=== PATIENT | male | born 1980 | race Two or more races ===

== ENCOUNTER 2020-04-01 10:38 | Emergency (ER) | payer OTHER ==
[2020-04-01 12:05] LABS: ABSOLUTE MONOCYTES (AUTO) 0.4 10^3/uL (0.1-1.4); ABSOLUTE NEUT (AUTO) 2.7 10^3/uL (1.7-8.2); BASOPHILS % (AUTO) 0.7 % (0-2); EOSINOPHILS % (AUTO) 0.1 % (0-6); HEMATOCRIT 42.1 % (37.9-51.0); HEMOGLOBIN 14.5 g/dL (13.5-17.0); MEAN CORPUSCULAR HGB CONC 34.4 g/dL (32.0-36.0); MEAN CORPUSCULAR VOLUME 84 fl (80-97); MONOCYTES % (AUTO) 10.4 % (3-13); PLATELET COUNT 206 10^3/uL (150-450); RED BLOOD COUNT 4.98 10^6/uL (4.35-5.55); SEGMENTED NEUTROPHILS % (AUTO) 63.8 % (42-78); TOTAL CELLS COUNTED % (AUTO) 100 %; WHITE BLOOD COUNT 4.2 10^3/uL (4.0-10.5)
[2020-04-01 12:08] LABS: ALBUMIN 4.9 g/dL (3.5-5.0); ALKALINE PHOSPHATASE 47 U/L (38-126); ANION GAP 10 (5-19); ASPARTATE AMINO TRANSFERASE 26 U/L (17-59); BILIRUBIN,DIRECT 0.2 mg/dL (0.0-0.4); BILIRUBIN,TOTAL 0.6 mg/dL (0.2-1.3); BLOOD UREA NITROGEN 11 mg/dL (7-20); CALCIUM 10.1 mg/dL (8.4-10.2); CARBON DIOXIDE 27 mmol/L (22-30); CHLORIDE 102 mmol/L (98-107); CREATINE KINASE 208 U/L (55-170); GLUCOSE 98 mg/dL (75-110); POTASSIUM 4.2 mmol/L (3.6-5.0); TOTAL PROTEIN 7.9 g/dL (6.3-8.2)
--- NOTE | 2020-04-01 12:12 | ER Document Report ---
ED Cardiac - General Chief Complaint: Palpitations Stated Complaint: FAST HEARTRATE/DIZZYNESS Time Seen by Provider: 04/01/20 10:46 Mode of Arrival: Ambulatory Information source: Patient Notes: This 39-year-old man presents to the emergency department with a complaint of episodic tachycardia with occasional tingling in the extremities and dizziness. He has been having symptoms for over 4 months intermittently. States that he had seen blending plant operator in [place] for ultrasound and evaluation. Holter monitor was not placed at that time. He has had some investigation no diagnosis has been made. He describes a episodic chest discomfort which he states is not a predominant portion of his symptoms. He denies known medical diagnoses and does not take any medications at this time. - Related Data Allergies/Adverse Reactions: No Known Allergies Allergy (Verified 04/01/20 11:03) Past Medical History - Social History Smoking Status: Never Smoker Chew tobacco use (# tins/day): No Frequency of alcohol use: Social Drug Abuse: None Family History: Reviewed & Not Pertinent Patient has homicidal ideation: No Past Surgical History: Reports: Hx Appendectomy Review of Systems - Review of Systems Notes: Constitutional: Negative for fever. HENT: Negative for sore throat. Eyes: Negative for visual changes. Cardiovascular: See HPI Respiratory: Negative for shortness of breath. Gastrointestinal: Negative for abdominal pain, vomiting or diarrhea. Genitourinary: Negative for dysuria. Musculoskeletal: Negative for back pain. Skin: Negative for rash. Neurological: Negative for headaches, weakness or numbness. 10 point ROS negative except as marked above and in HPI. Physical Exam - Vital signs Vitals: Pulse Ox 99 04/01/20 11:00 - Notes Notes: PHYSICAL EXAMINATION: Physical Exam: General: Well-nourished well-developed 39-year-old in no acute distress HEENT: NC/AT, pupils equal round and reactive to light, MM moist,nares clear, oropharynx clear, airway patent Neck: supple, no adenopathy, no masses. Good range of motion Lungs: clear, no wheezing, no rales no rhonchi CVS: Regular rate and rhythm no murmur gallop or rub Abdomen: Soft, active, nontender, no masses, no hepatosplenomegaly Ext: No edema, clubbing or cyanosis. Neuro: Alert and responsive, moving all 4 extremities on command, cranial nerves intact, no focal findings Skin: Intact no open lesions, no rash PSYCH: Normal mood, normal affect. Course - Re-evaluation Re-evalutation: 04/01/20 16:10 Discussed the patient with the blending plant operator Dr. Grimes, he has suggested that the patient make the appointment with him and have Holter monitor placed. Given his frequency of episodes low-dose beta-ki could be used. He is given propranolol half a tablet twice daily. He is encouraged to call and schedule with a blending plant operator today. - Vital Signs Vital signs: Temp Pulse Resp BP Pulse Ox 18 122/72 99 04/01/20 15:01 04/01/20 15:01 04/01/20 15:01 - Laboratory Result Diagrams: 04/01/20 11:15 04/01/20 11:15 Laboratory results interpreted by me: 04/01/20 11:15 Creatine Kinase 208 H I have reviewed laboratory data and used this information for the treatment decisions regarding the patient. - Diagnostic Test Radiology reviewed: Image reviewed, Reports reviewed Radiology results interpreted by me: 04/01/20 16:08 Chest X-Ray 04/01/20 00:00 IMPRESSION: NO ACUTE RADIOGRAPHIC FINDING IN THE CHEST. - EKG Interpretation by Me Rate: Normal - EKG interpreted by Dr. Contreras: Normal sinus rhythm, rate 95, OR interval 132 ms QT interval 348ms, normal axis, no acute ST or T wave abnormalit ies, no ischemic findings, there is no prior EKG to compare. Interpretation: Normal EKG Discharge - Discharge Clinical Impression: Tachycardia Condition: Good Disposition: HOME, SELF-CARE Instructions: Beta Blockers ([facility]) Additional Instructions: You were seen in the emergency department today with history of rapid heartbeat episodes. The EKG and labs were unremarkable for a cause of your symptoms. Your chest x-ray is also noted to be normal. You have been given the name of a blending plant operator to call in order to get a Holter monitor placed. You have also been given a prescription for propranolol 10 mg tablets, you to take 1 tablet twice daily. Please arrange the appointment with the blending plant operator by calling the number today. Dr. Grimes, cardiology, If your symptoms are worsening or if you have other concerns you may return to the emergency department for further evaluation and treatment. HOME CARE INSTRUCTIONS & INFORMATION: Thank you for choosing us for your medical needs. We hope you're satisfied with the care you received. After you leave, you must properly care for your problem and, at the same time, observe its progress. Any condition can change. Some illnesses can change rapidly over hours or days. If your condition worsens, return to the Emergency Department or see your physician promptly. ABOUT YOUR X-RAYS AND EKG'S: If you had an EKG or X-rays taken, they have been read by the Emergency Physician. The X-rays and EKG's will also be read by a Radiologist or It Assistant within 24 hours. If discrepancies are noted, you will be notified by telephone. Please be certain the ED has a correct telephone number & address where you can be reached. Also, realize that some fractures or abnormalities do not show up on initial X-rays. If your symptoms continue, see your physician. ABOUT YOUR LABORATORY TEST: If you had laboratory tests, the results have been reviewed by the Emergency Physician. Some test results (for example cultures) may not be available for several days. You will be contacted if any test result shows you need additional treatment. Please be certain the ED has a correct telephone number and address where you can be reached. ABOUT YOUR MEDICATIONS: You will receive instructions on how to take your medicine on the prescription label you receive. Additional information may be provided by the Pharmacy. If you have questions afterwards, call the ED for clarification or further instructions. Some prescribed medications may cause drowsiness. Do not perform tasks such as driving a car or operating machinery without consulting your Pharmacist. If you feel you need a refill of pain medication, your condition will need re-evaluation. Please do not call for a refill of any medication. ABOUT YOUR SIGNATURE: Signature of this document acknowledges to followin. Understanding that you received emergency treatment and that you may be released before al medical problems are known or treated. Please be certain the ED has a correct phone number & address where you can be reached. 2. Acknowledgement that you will arrange for follow-up care as recommended. 3. Authorization for the Emergency Physician to provide information to your follow-up Physician in order to maximize your care. AT ANY TIME, IF YOUR SYMPTOMS CHANGE SIGNIFICANTLY OR WORSEN OR YOU DEVELOP NEW SYMPTOMS, RETURN TO THE EMERGENCY DEPARTMENT IMMEDIATELY FOR RE-EVALUATION. OUR GOAL IS TO PROVIDE EXCELLENT MEDICAL CARE! WE HOPE THAT WE HAVE MET YOUR EXPECTATIONS DURING YOUR EMERGENCY DEPARTMENT VISIT AND THAT YOU FEEL YOU HAVE RECEIVED EXCELLENT CARE! Prescriptions: Propranolol HCl [Inderal 10 mg Tablet] 10 mg PO Q12 #30 tab
[2020-04-01 12:20] LABS: CREATINE KINASE MB 1.03 ng/mL (<4.55)
[2020-04-01 12:26] LABS: TROPONIN I < 0.012 ng/mL
--- NOTE | 2020-04-01 12:44 | RADIOLOGY REPORT (SQ) ---
EXAM DESCRIPTION: CHEST 2 VIEWS IMAGES COMPLETED DATE/TIME: 04/01/2020 12:32 pm REASON FOR STUDY: chest pain COMPARISON: None. EXAM PARAMETERS: NUMBER OF VIEWS: two views TECHNIQUE: Digital Frontal and Lateral radiographic views of the chest acquired. RADIATION DOSE: NA LIMITATIONS: none FINDINGS: LUNGS AND PLEURA: No opacities, masses or pneumothorax. No pleural effusion. MEDIASTINUM AND HILAR STRUCTURES: No masses or contour abnormalities. HEART AND VASCULAR STRUCTURES: Heart normal size. No evidence for failure. BONES: No acute findings. HARDWARE: None in the chest. OTHER: No other significant finding. IMPRESSION: NO ACUTE RADIOGRAPHIC FINDING IN THE CHEST. TECHNICAL DOCUMENTATION: JOB ID: [id number] 2010 [employer]- All Rights Reserved Reading location - IP/workstation name: [email or web address]
[2020-04-01 16:36] VITALS: BP 122/72
--- NOTE | 2020-04-01 18:02 | EKG REPORT ---
SEVERITY:- NORMAL ECG - SINUS RHYTHM : Confirmed by: Nish Spencer MD 01-Apr-2020 18:01:19
== END 2020-04-01 16:33 | disposition home or self-care (01) ==
LOC: ER 10:38
DX: R00.0 Tachycardia, unspecified (principal); R20.2 Paresthesia of skin; R42 Dizziness and giddiness; R07.9 Chest pain, unspecified
CPT/HCPCS: 36415; 71046; 80053; 82550; 82553; 84443; 84484; 85025; 93005; 93010; 99285

== ENCOUNTER → 2020-04-08 | Outpatient (CLI) | payer OTHER ==
[2020-04-08 09:26] LABS: ALBUMIN 4.8 g/dL (3.5-5.0); ALKALINE PHOSPHATASE 45 U/L (38-126); ASPARTATE AMINO TRANSFERASE 24 U/L (17-59); BILIRUBIN,DIRECT 0.1 mg/dL (0.0-0.4); BILIRUBIN,TOTAL 0.9 mg/dL (0.2-1.3); CHOLESTEROL 176.76 mg/dL (0-200); TOTAL PROTEIN 7.6 g/dL (6.3-8.2); TRIGLYCERIDES 63 mg/dL (<150)
[2020-04-08 09:38] LABS: DIRECT LDL 85 mg/dL (<100)
[2020-04-08 10:12] LABS: FREE T3 4.4 pg/mL (2.77-5.27); FREE T4 (FREE THYROXINE) 1.14 ng/dL (0.78-2.19)
[2020-04-08 10:25] LABS: THYROID STIMULATING HORMONE 2.01 uIU/mL (0.47-4.68)
== END ==
LOC: OD 08:06
PROVIDERS: ATTEND Specialist
DX: R07.9 Chest pain, unspecified (principal); E78.5 Hyperlipidemia, unspecified; Z13.29 Encounter for screening for other suspected endocrine disorder; Z79.899 Other long term (current) drug therapy
CPT/HCPCS: 36415; 80061; 80076; 83036; 84439; 84443; 84481

== ENCOUNTER 2020-04-09 11:42 | Emergency (ER) | payer OTHER ==
--- NOTE | 2020-04-09 12:27 | ER Document Report ---
ED Medical Screen (RME) - General Chief Complaint: Palpitations Stated Complaint: HEART RATE ISSUES Time Seen by Provider: 04/09/20 12:23 Primary Care Provider: NELSON MEHTA MD [Primary Care Provider] - Follow up as needed Mode of Arrival: Wheelchair Information source: Patient Notes: 39-year-old male presents to ED for complaint of chest palpitations. He states he has had the palpitations on and off for years. He states at times it makes him feel like he was going to pass out. He states it was very fast pulse today so he came back into the emergency room. He states his pulse gets up to 140. He is alert oriented respirations regular nonlabored speaking in full sentences I have ordered a chest pain protocol at this time. I have greeted and performed a rapid initial assessment of this patient. A comprehensive ED assessment and evaluation of the patient, analysis of test results and completion of medical decision making process will be conducted by an additional ED providers. - Related Data Allergies/Adverse Reactions: No Known Allergies Allergy (Verified 04/01/20 11:03) Past Medical History Past Surgical History: Reports: Hx Appendectomy Physical Exam - Vital signs Vitals: Temp Pulse Resp BP Pulse Ox 98.1 F 100 18 152/90 H 99 04/09/20 11:45 04/09/20 11:45 04/09/20 11:45 04/09/20 11:45 04/09/20 11:45 Course - Vital Signs Vital signs: Temp Pulse Resp BP Pulse Ox 98.1 F 100 18 152/90 H 99 04/09/20 11:45 04/09/20 11:45 04/09/20 11:45 04/09/20 11:45 04/09/20 11:45 Doctor's Discharge - Discharge Referrals: NELSON MEHTA MD [Primary Care Provider] - Follow up as needed
--- NOTE | 2020-04-09 13:22 | RADIOLOGY REPORT (SQ) ---
EXAM DESCRIPTION: CHEST 2 VIEWS IMAGES COMPLETED DATE/TIME: 04/09/2020 12:00 pm REASON FOR STUDY: palpitations COMPARISON: None. EXAM PARAMETERS: NUMBER OF VIEWS: two views TECHNIQUE: Digital Frontal and Lateral radiographic views of the chest acquired. RADIATION DOSE: NA LIMITATIONS: none FINDINGS: LUNGS AND PLEURA: No opacities, masses or pneumothorax. No pleural effusion. MEDIASTINUM AND HILAR STRUCTURES: No masses or contour abnormalities. HEART AND VASCULAR STRUCTURES: Heart normal size. No evidence for failure. BONES: No acute findings. HARDWARE: Battery pack at the left chest wall without lead wires. OTHER: No other significant finding. IMPRESSION: NO ACUTE RADIOGRAPHIC FINDING IN THE CHEST. TECHNICAL DOCUMENTATION: JOB ID: [id number] 2010 [employer]- All Rights Reserved Reading location - IP/workstation name: [email or web address]
[2020-04-09 14:01] LABS: ABSOLUTE LYMPHOCYTES (AUTO) 1.2 10^3/uL (0.5-4.7); ABSOLUTE MONOCYTES (AUTO) 0.4 10^3/uL (0.1-1.4); ABSOLUTE NEUT (AUTO) 2.5 10^3/uL (1.7-8.2); BASOPHILS % (AUTO) 0.5 % (0-2); EOSINOPHILS % (AUTO) 0.3 % (0-6); HEMOGLOBIN 14.7 g/dL (13.5-17.0); LYMPHOCYTES % (AUTO) 28.6 % (13-45); MEAN CORPUSCULAR HEMOGLOBIN 29.6 pg (27.0-33.4); MEAN CORPUSCULAR HGB CONC 34.9 g/dL (32.0-36.0); MEAN CORPUSCULAR VOLUME 85 fl (80-97); MONOCYTES % (AUTO) 10.4 % (3-13); PLATELET COUNT 214 10^3/uL (150-450); RED BLOOD COUNT 4.96 10^6/uL (4.35-5.55); SEGMENTED NEUTROPHILS % (AUTO) 60.2 % (42-78); TOTAL CELLS COUNTED % (AUTO) 100 %; WHITE BLOOD COUNT 4.2 10^3/uL (4.0-10.5)
[2020-04-09 14:17] LABS: ALBUMIN 4.9 g/dL (3.5-5.0); ALKALINE PHOSPHATASE 45 U/L (38-126); ANION GAP 9 (5-19); ASPARTATE AMINO TRANSFERASE 24 U/L (17-59); BILIRUBIN,TOTAL 0.7 mg/dL (0.2-1.3); BLOOD UREA NITROGEN 10 mg/dL (7-20); CARBON DIOXIDE 29 mmol/L (22-30); CHLORIDE 102 mmol/L (98-107); CREATINE KINASE 106 U/L (55-170); GLUCOSE 84 mg/dL (75-110); POTASSIUM 4.5 mmol/L (3.6-5.0); TOTAL PROTEIN 8.2 g/dL (6.3-8.2)
--- NOTE | 2020-04-09 14:32 | ER Document Report ---
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 Guru Contreras for evaluation of palpitations with a negative work-up including normal labs, EKG and chest x- ray. He is having ongoing palpitations. He has been seen by Dr. Mehta from cardiology and has had an event monitor placed. We still have results from this. He denies chest pain. He denies syncope or presyncope. He denies caffeine intake. He has been taking some as needed propranolol with mixed results. - Related Data Allergies/Adverse Reactions: No Known Allergies Allergy (Verified 04/01/20 11:03) Past Medical History - General Information source: Patient - Social History Smoking Status: Never Smoker Frequency of alcohol use: None Drug Abuse: None Family History: Reviewed & Not Pertinent - Past Medical History Cardiac Medical History: Reports: None Pulmonary Medical History: Denies: Hx Asthma Past Surgical History: Reports: Hx Appendectomy Review of Systems - Review of Systems Notes: Constitutional: Negative for fever. HENT: Negative for sore throat. Eyes: Negative for visual changes. Cardiovascular: As per HPI. Respiratory: Negative for shortness of breath. Gastrointestinal: Negative for abdominal pain, vomiting or diarrhea. Genitourinary: Negative for dysuria. Musculoskeletal: Negative for back pain. Skin: Negative for rash. Neurological: Negative for headaches, weakness or numbness. 10 point ROS negative except as marked above and in HPI. Physical Exam - Vital signs Vitals: Temp Pulse Resp BP Pulse Ox 98.1 F 100 18 152/90 H 99 04/09/20 11:45 04/09/20 11:45 04/09/20 11:45 04/09/20 11:45 04/09/20 11:45 - Notes Notes: GENERAL: Anxious middle-age male otherwise appearing in no acute distress. SKIN: Good turgor no rashes. HEAD: Normocephalic atraumatic. EYES: PERRLA. EOMI. Conjunctivae and sclerae clear. EARS: CANALS AND TMS CLEAR. NOSE: CLEAR. MOUTH: Moist mucosa. Good dentition. No stridor or edema. No drooling. NECK: Supple. No masses or thyromegaly. No adenopathy. Carotids 2+ without bruits. No JVD. BACK: Symmetrical without tenderness. CHEST: Respirations unlabored. Breath sounds clear and symmetrical. HEART: Regular rhythm. No murmur gallop or rub. ABDOMEN: Soft nontender without masses, organomegaly or rebound. Bowel sounds normally active. No bruits. GENITALIA: Deferred. EXTREMITIES: No edema. No calf tenderness. Cap refill less than 1.5 seconds. Dorsalis pedis and posterior tibial pulses 3+ and symmetrical. NEUROLOGICAL: GCS 15. Alert and oriented x3. Normal gait. Fluent speech. Cranial nerves II through XII intact. Sensorimotor and cerebellar normal. Normal tone. PSYCHIATRIC: Appropriate affect. Course - Re-evaluation Re-evalutation: 04/09/20 14:30 Patient was seen by Dr. Mehta in the emergency department for consultation. He recommends placing the patient on metoprolol 25 mg twice daily and he will see the patient for outpatient follow-up. 04/09/20 14:30 Findings, clinical impression and plan of treatment have been discussed with patient/family. Understanding of current findings and recommendations has been acknowledged by them and there is agreement regarding disposition and follow-up. - Vital Signs Vital signs: Temp Pulse Resp BP Pulse Ox 98.1 F 100 18 152/90 H 99 04/09/20 11:45 04/09/20 11:45 04/09/20 11:45 04/09/20 11:45 04/09/20 11:45 - Laboratory Result Diagrams: 04/09/20 13:30 04/09/20 13:30 - EKG Interpretation by Me Additional EKG results interpreted by me: 04/09/20 14:31 Twelve-lead EKG reviewed by me contemporaneously: 1147 hrs. Indication for study: Palpitations Rhythm: Normal sinus Rate: 93 Intervals: Normal QRS axis: Normal -[address]/T wave changes: None Comparison with prior tracing: None Interpretation: Normal sinus rhythm Discharge - Discharge Clinical Impression: Palpitations Condition: Stable Disposition: HOME, SELF-CARE Instructions: Palpitations (Irregular or Rapid Heartrate) ([facility]), Beta Blockers ([facility]) Prescriptions: Metoprolol Tartrate [Lopressor 25 mg Tablet] 25 mg PO Q12 30 Days #60 tab Referrals: NELSON MEHTA MD [Primary Care Provider] - Follow up as needed
[2020-04-09 14:56] LABS: APPEARANCE,URINE CLEAR; BILIRUBIN,URINE NEGATIVE (NEGATIVE); COLOR,URINE STRAW; GLUCOSE, URINE NEGATIVE (NEGATIVE); KETONES,URINE NEGATIVE (NEGATIVE); LEUKOCYTE ESTERASE,URINE NEGATIVE (NEGATIVE); NITRITE,URINE NEGATIVE (NEGATIVE); PROTEIN,URINE NEGATIVE (NEGATIVE); URINE SPECIFIC GRAVITY 1.005; UROBILINOGEN,URINE NEGATIVE mg/dL (<2.0)
[2020-04-09 15:15] LABS: URINE AMPHETAMINES SCREEN NEGATIVE; URINE BARBITURATES SCREEN NEGATIVE; URINE BENZODIAZEPINES SCREEN NEGATIVE; URINE COCAINE SCREEN NEGATIVE; URINE MARIJUANA (THC) SCREEN NEGATIVE; URINE METHADONE SCREEN NEGATIVE
[2020-04-09 15:18] LABS: URINE PHENCYCLIDINE SCREEN NEGATIVE
[2020-04-09 15:32] VITALS: BP 126/74
--- NOTE | 2020-04-10 09:13 | EKG REPORT ---
SEVERITY:- OTHERWISE NORMAL ECG - SINUS RHYTHM MINIMAL ST DEPRESSION, INFERIOR LEADS : Confirmed by: Feliberto Alan MD 10-Apr-2020 09:13:03
== END 2020-04-09 15:33 | disposition home or self-care (01) ==
LOC: ER 11:42
DX: R00.2 Palpitations (principal)
CPT/HCPCS: 36415; 71046; 80053; 80307; 81001; 82550; 83735; 84484; 85025; 93005; 93010; 99285